=== PATIENT | male | born 1985 | race Caucasian/White ===

== ENCOUNTER 2020-02-08 10:19 | Emergency (ER) | payer BC ==
[~2020-02-08] VITALS: Ht 177.8 cm; Wt 70.0 kg
[~2020-02-08 10:19] MED LIST: ATRIPLA PO; AZITHROMYCIN600 MG OR; BACTRIM1 TAB OR; CEPHALEXIN500 MG OR; DARVOCET-N 100100 MG OR; DIFLUCAN150 MG OR; DRONABINOL PO; ESCITALOPRAM OX10 MG PO; FLEXERIL PO; ISENTRESS400 MG PO; NAPROSYN500 MG PO; RISPERDAL0.5 MG PO; SERTRALINE100 MG OR; TRAZODONE50 MG OR; TRUVADA PO; ULTRAM50 M1 PO; ULTRAM50 MG OR; VENLAFAXINE HCL75 M1 PO; VISTARIL25 MG OR; ZOLOFT50 MG PO
[2020-02-08 11:14] LABS: HEMATOCRIT 44.5 % (39.0-50.0); HEMOGLOBIN 15.1 g/dl (14.0-18.0); IMMATURE GRANULOCYTES 0.6 % (0.0-5.0); MEAN CELL VOLUME 96.1 fL CALC (80.0-100.0); MEAN CORPUSCULAR HGB 32.6 pG CALC (26.0-32.0); MEAN CORPUSCULAR HGB CONC 33.9 g/dL CAL (32.0-36.0); NEUT# 4.16 thou/uL (1.82-7.42); RED BLOOD COUNT 4.63 mill/uL (4.70-6.10); RED CELL DISTRI WIDTH 12.7 % (11.5-15.5)
[2020-02-08] MEDS ORDERED: NORVASC PO (11:14)
[2020-02-08] MEDS ORDERED: FLEXERIL5 MG PO (11:15)
[2020-02-08 11:31] LABS: ALBUMIN 4.3 g/dL (3.2-5.0); ALKALINE PHOSPHATASE 92 u/l (38-126); ANION GAP 11 (6-22 (CALC)); BILIRUBIN, TOTAL 0.3 mg/dL (0.0-1.4); BUN 9 mg/dL (9-20); BUN/CREATININE RATIO 15 (12-20 (CALC)); CARBON DIOXIDE 25 mmol/l (22-30); CHLORIDE 103 mmol/l (95-108); CREATININE 0.6 mg/dL (0.7-1.3); GFR > 60 ML/MIN (>=60 (CALC)); GFR FOR AFR.AMER. > 60 ML/MIN (>=60 (CALC)); POTASSIUM 3.8 mmol/l (3.5-5.1); SGOT/AST 29 u/l (17-59); SODIUM 135 mmol/l (137-146); TOTAL PROTEIN 7.6 g/dL (6.3-8.2)
[2020-02-08 12:23] VITALS: BP 141/95
== END 2020-02-08 12:29 | disposition home or self-care (01) | DRG 103 ==
LOC: ED 10:19
PROVIDERS: Family Medicine
DX: R51.9 Headache, unspecified (principal); I10 Essential (primary) hypertension; F17.200 Nicotine dependence, unspecified, uncomplicated

== ENCOUNTER 2020-11-24 04:58 | Emergency (ER) | payer BC ==
[~2020-11-24] VITALS: Ht 177.8 cm; Wt 79.5 kg
[~2020-11-24 04:58] MED LIST changes: +FLEXERIL5 MG PO; +NORVASC PO
[2020-11-24 06:06] LABS: HEMATOCRIT 49.9 % (39.0-50.0); HEMOGLOBIN 16.8 g/dl (14.0-18.0); IMMATURE GRANULOCYTES 0.3 % (0.0-5.0); MEAN CELL VOLUME 97.3 fL CALC (80.0-100.0); MEAN CORPUSCULAR HGB 32.7 pG CALC (26.0-32.0); MEAN CORPUSCULAR HGB CONC 33.7 g/dL CAL (32.0-36.0); NEUT# 9.56 thou/uL (1.82-7.42); RED BLOOD COUNT 5.13 mill/uL (4.70-6.10); RED CELL DISTRI WIDTH 12.3 % (11.5-15.5)
[2020-11-24 06:32] LABS: ALBUMIN 4.9 g/dL (3.2-5.0); ALKALINE PHOSPHATASE 114 u/l (38-126); ANION GAP 13 (6-22 (CALC)); BILIRUBIN, TOTAL 0.4 mg/dL (0.0-1.4); BUN 9 mg/dL (9-20); BUN/CREATININE RATIO 9 (12-20 (CALC)); CARBON DIOXIDE 28 mmol/l (22-30); CHLORIDE 100 mmol/l (95-108); CREATININE 1.1 mg/dL (0.7-1.3); GFR > 60 ML/MIN (>=60 (CALC)); GFR FOR AFR.AMER. > 60 ML/MIN (>=60 (CALC)); POTASSIUM 4.4 mmol/l (3.5-5.1); SGOT/AST 27 u/l (17-59); SODIUM 137 mmol/l (137-146)
[2020-11-24] MEDS ORDERED: PROMETHAZINE HY25 M1 PO (07:00)
[2020-11-24] MEDS ORDERED: BROMFED D1 PO (07:00)
[2020-11-24 07:11] VITALS: BP 134/72
== END 2020-11-24 07:13 | disposition home or self-care (01) | DRG 866 ==
LOC: ED 04:58
PROVIDERS: Family Medicine
DX: B34.9 Viral infection, unspecified (principal); I10 Essential (primary) hypertension; F17.210 Nicotine dependence, cigarettes, uncomplicated; Z21 Asymptomatic human immunodeficiency virus [HIV] infection status; Z20.822 Contact with and (suspected) exposure to COVID-19

== ENCOUNTER 2021-06-06 08:27 | Emergency (ER) | payer BC ==
[~2021-06-06] VITALS: Ht 177.8 cm; Wt 78.0 kg
[~2021-06-06 08:27] MED LIST changes: +BROMFED D1 PO; +PROMETHAZINE HY25 M1 PO
[2021-06-06 09:09] LABS: HEMATOCRIT 52.2 % (39.0-50.0); HEMOGLOBIN 17.1 g/dl (14.0-18.0); IMMATURE GRANULOCYTES 0.1 % (0.0-5.0); MEAN CELL VOLUME 95.6 fL CALC (80.0-100.0); MEAN CORPUSCULAR HGB 31.3 pG CALC (26.0-32.0); MEAN CORPUSCULAR HGB CONC 32.8 g/dL CAL (32.0-36.0); NEUT# 4.03 thou/uL (1.82-7.42); RED BLOOD COUNT 5.46 mill/uL (4.70-6.10); RED CELL DISTRI WIDTH 12.3 % (11.5-15.5)
[2021-06-06 09:24] LABS: ALBUMIN 4.3 g/dL (3.2-5.0); ALKALINE PHOSPHATASE 83 u/l (38-126); ANION GAP 18 (6-22 (CALC)); BILIRUBIN, TOTAL 0.5 mg/dL (0.0-1.4); BUN 9 mg/dL (9-20); BUN/CREATININE RATIO 10 (12-20 (CALC)); CARBON DIOXIDE 24 mmol/l (22-30); CHLORIDE 99 mmol/l (95-108); GFR > 60 ML/MIN (>=60 (CALC)); GFR FOR AFR.AMER. > 60 ML/MIN (>=60 (CALC)); POTASSIUM 3.8 mmol/l (3.5-5.1); SGOT/AST 34 u/l (17-59); SODIUM 137 mmol/l (137-146); TOTAL PROTEIN 8.3 g/dL (6.3-8.2)
[2021-06-06 12:44] VITALS: BP 120/86
== END 2021-06-06 12:44 | disposition home or self-care (01) | DRG 179 ==
LOC: ED 08:27
PROVIDERS: Family Medicine
DX: U07.1 COVID-19 (principal); M54.9 Dorsalgia, unspecified; R07.89 Other chest pain; F17.200 Nicotine dependence, unspecified, uncomplicated; Z21 Asymptomatic human immunodeficiency virus [HIV] infection status

== ENCOUNTER 2022-02-24 06:09 | Emergency (ER) | payer BC ==
[~2022-02-24] VITALS: Ht 177.8 cm; Wt 70.4 kg
[2022-02-24 06:25] VITALS: BP 115/88
[2022-02-24 06:44] LABS: HEMATOCRIT 50.1 % (39.0-50.0); HEMOGLOBIN 17.6 g/dl (14.0-18.0); IMMATURE GRANULOCYTES 0.2 % (0.0-5.0); MEAN CELL VOLUME 91.6 fL CALC (80.0-100.0); MEAN CORPUSCULAR HGB 32.2 pG CALC (26.0-32.0); MEAN CORPUSCULAR HGB CONC 35.1 g/dL CAL (32.0-36.0); NEUT# 3.37 thou/uL (1.82-7.42); RED BLOOD COUNT 5.47 mill/uL (4.70-6.10); RED CELL DISTRI WIDTH 12.3 % (11.5-15.5)
[2022-02-24 06:55] LABS: ALBUMIN 4.6 g/dL (3.2-5.0); ALKALINE PHOSPHATASE 76 u/l (38-126); AMYLASE 139 u/l (30-110); ANION GAP 16 (6-22 (CALC)); BILIRUBIN, TOTAL 0.3 mg/dL (0.0-1.4); BUN 10 mg/dL (9-20); BUN/CREATININE RATIO 9 (12-20 (CALC)); CHLORIDE 103 mmol/l (95-108); CREATININE 1.1 mg/dL (0.7-1.3); GFR FOR AFR.AMER. > 60 ML/MIN (>=60 (CALC)); GFR OTHER RACES > 60 ML/MIN (>=60 (CALC)); LIPASE 1376 u/l (23-300); POTASSIUM 3.7 mmol/l (3.5-5.1); SGOT/AST 39 u/l (17-59); SODIUM 133 mmol/l (137-146); TOTAL PROTEIN 7.9 g/dL (6.3-8.2)
[2022-02-24 06:57] LABS: CARBON DIOXIDE 18 mmol/l (22-30)
[2022-02-24 07:50] LABS: URINE BILIRUBIN - DIPSTICK NEGATIVE (NEGATIVE); URINE BLOOD DIPSTICK NEGATIVE (NEGATIVE); URINE COLOR YELLOW; URINE GLUCOSE - DIPSTICK NEGATIVE (NEGATIVE); URINE KETONE NEGATIVE (NEGATIVE); URINE LEUK ESTERASE NEGATIVE (NEGATIVE); URINE PROTEIN - DIPSTICK NEGATIVE (NEG-TRACE); URINE UROBILINOGEN - DIPSTICK 0.2 E.U./dL (0.2)
[2022-02-24 07:58] LABS: URINE NITRITE - DIPSTICK NEGATIVE (Negative)
[2022-02-24] MEDS ORDERED: DICYCLOMINE10 MG PO (08:44)
== END 2022-02-24 08:55 | disposition home or self-care (01) | DRG 392 ==
LOC: ED 06:09
PROVIDERS: Emergency Medicine
DX: A08.4 Viral intestinal infection, unspecified (principal)
CPT/HCPCS: Q9967

== ENCOUNTER 2022-05-31 08:21 | Emergency (ER) | payer BC ==
[~2022-05-31] VITALS: Ht 177.8 cm; Wt 68.0 kg
[~2022-05-31 08:21] MED LIST changes: +DICYCLOMINE10 MG PO
[2022-05-31 08:27] VITALS: BP 125/92
[2022-05-31 08:30] VITALS: BP 129/85
[2022-05-31 08:45] VITALS: BP 124/94
[2022-05-31 09:00] VITALS: BP 126/94
[2022-05-31 09:10] LABS: BASO% 0.3 % (0-3); EOS% 0.9 % (0-8); HEMATOCRIT 47.1 % (39.0-50.0); IMMATURE GRANULOCYTES 1.6 % (0.0-5.0); LYMPH% 19.9 % (15-41); MEAN CELL VOLUME 94.2 fL CALC (80.0-100.0); MEAN CORPUSCULAR HGB 31.2 pG CALC (26.0-32.0); MEAN CORPUSCULAR HGB CONC 33.1 g/dL CAL (32.0-36.0); MONO% 13.2 % (2-13); NEUT# 7.5 thou/uL (1.82-7.42); NEUT% 64.1 % (42-76); RED CELL DISTRI WIDTH 13.1 % (11.5-15.5)
[2022-05-31 09:14] LABS: HEMOGLOBIN 15.6 g/dl (14.0-18.0)
[2022-05-31 09:20] LABS: ALBUMIN 4.2 g/dL (3.2-5.0); BILIRUBIN, TOTAL 0.3 mg/dL (0.2-1.3); BUN 9 mg/dL (9-20); BUN/CREATININE RATIO 10 (12-20 (CALC)); CHLORIDE 99 mmol/l (95-108); CREATININE 0.9 mg/dL (0.7-1.3); GFR FOR AFR.AMER. > 60 ML/MIN (>=60 (CALC)); GFR OTHER RACES > 60 ML/MIN (>=60 (CALC)); LIPASE 113 u/l (23-300); POTASSIUM 3.5 mmol/l (3.5-5.1); SODIUM 134 mmol/l (137-146); TOTAL PROTEIN 8.4 g/dL (6.3-8.2)
[2022-05-31 09:22] LABS: ALKALINE PHOSPHATASE 146 u/l (38-126); ANION GAP 11 (6-22 (CALC)); CARBON DIOXIDE 28 mmol/l (22-30); SGOT/AST 73 u/l (17-59)
[2022-05-31 13:37] LABS: URINE BILIRUBIN - DIPSTICK NEGATIVE (NEGATIVE); URINE BLOOD DIPSTICK NEGATIVE (NEGATIVE); URINE COLOR YELLOW; URINE GLUCOSE - DIPSTICK NEGATIVE (NEGATIVE); URINE KETONE NEGATIVE (NEGATIVE); URINE LEUK ESTERASE NEGATIVE (NEGATIVE); URINE PH 7.5 (4.5-8.0); URINE PROTEIN - DIPSTICK TRACE mg/dL (NEG-TRACE)
[2022-05-31 13:40] LABS: URINE NITRITE - DIPSTICK NEGATIVE (Negative)
[2022-05-31] MEDS ORDERED: MELOXICAM7.5 MG PO (15:06)
[2022-05-31] MEDS ORDERED: PROMETHAZINE HY25 M1 PO (15:06)
[2022-05-31 15:44] VITALS: BP 126/94
[2022-06-08] MEDS ORDERED: FLEXERIL5 M1 PO (10:52)
[2022-06-08] MEDS ORDERED: ACYCLOVIR400 MG PO (10:53)
[2022-06-08] MEDS ORDERED: RILPIVIRINE (10:56)
[2022-06-08] MEDS ORDERED: [UNRECOGNIZED DRUG - OTHER] (10:56)
== END 2022-05-31 16:20 | disposition home or self-care (01) | DRG 310 ==
LOC: ED 08:21
PROVIDERS: Internal Medicine
DX: R00.0 Tachycardia, unspecified (principal); R07.9 Chest pain, unspecified; R79.89 Other specified abnormal findings of blood chemistry; Z21 Asymptomatic human immunodeficiency virus [HIV] infection status; F17.210 Nicotine dependence, cigarettes, uncomplicated
CPT/HCPCS: Q9967

== ENCOUNTER 2022-12-25 20:41 | Emergency (ER) | payer BC ==
[~2022-12-25] VITALS: Ht 177.8 cm; Wt 78.0 kg
[~2022-12-25 20:41] MED LIST changes: +ACYCLOVIR400 MG PO; +FLEXERIL5 M1 PO; +MELOXICAM7.5 MG PO; +RILPIVIRINE; +[UNRECOGNIZED DRUG - OTHER]
[2022-12-25 21:10] VITALS: BP 123/90
[2022-12-25] MEDS ORDERED: BUPROPION HCL150 MG PO (21:33)
[2022-12-25] MEDS ORDERED: [UNRECOGNIZED DRUG - MIXTURE] SC (21:33)
[2022-12-25] MEDS ORDERED: ATENOLOL50 MG PO (21:34)
[2022-12-25] MEDS ORDERED: MEDICAL MARIJUANA (21:36)
== END 2022-12-25 23:30 | disposition home or self-care (01) | DRG 605 ==
LOC: ED 20:41
DX: S60.221A Contusion of right hand, initial encounter (principal); I10 Essential (primary) hypertension; F41.9 Anxiety disorder, unspecified; F17.200 Nicotine dependence, unspecified, uncomplicated; X58.XXXA Exposure to other specified factors, initial encounter; Y92.89 Other specified places as the place of occurrence of the external cause; Y99.0 Civilian activity done for income or pay; Z21 Asymptomatic human immunodeficiency virus [HIV] infection status